=== PATIENT | female | born 1935 | race Two or more races ===

== ENCOUNTER 2020-07-24 13:50 | Emergency (ER) | payer MEDICAID ==
[~2020-07-24] VITALS: Ht 134.6 cm; Wt 35.0 kg
[~2020-07-24 13:50] MED LIST: ACET325T9 PO; AMLO-187 PO; ASPI-886 PO; CARV6.2511 PO; CLON1PAT6 TD; DOCU100C28 PO; FERR325T14 PO; FURO-69 PO; LISI10TA16 PO; PANT40TA77 PO; POLY17PO52 PO
[2020-07-24 15:03] LABS: BASO # 0.1 x10^3/uL (0.0-0.2); BASO % 1 % (0-3); EOS # 0.1 x10^3/uL (0.0-0.7); EOS % 2 % (0-3); HEMATOCRIT 33.3 % (36.0-47.0); HEMOGLOBIN 10.8 g/dL (12.0-15.5); LYMPH # 0.3 x10^3/uL (1.0-4.8); LYMPH % 7 % (24-48); MEAN CORPUSCULAR HEMOGLOBIN 27 pg (25-35); MEAN CORPUSCULAR HGB CONC 32 g/dL (31-37); MEAN CORPUSCULAR VOLUME 83 fL (79-100); MONO # 0.4 x10^3/uL (0.0-1.1); MONO % 8 % (0-9); NEUT # 3.8 x10^3/uL (1.8-7.7); NEUT % 82 % (31-73); PLATELET COUNT 325 x10^3/uL (140-400); RED BLOOD COUNT 3.99 x10^6/uL (3.50-5.40); RED CELL DISTRIBUTION WIDTH 17.8 % (11.5-14.5); WHITE BLOOD COUNT 4.6 x10^3/uL (4.0-11.0)
[2020-07-24] MEDS: MECLIZINE HCL 12.5 MG TABLET. PO ONE (15:11)
[2020-07-24] MEDS: IV NORMAL SALINE 500ML BAG 500 ML IV ONE (15:11)
[2020-07-24] MEDS: ONDANSETRON PF 4 MG/2 ML VIAL. IVP ONE (15:11)
[2020-07-24 15:16] LABS: CALCIUM 8.6 mg/dL (8.5-10.1); CREATININE 1.3 mg/dL (0.6-1.0); GFR 38.9; POTASSIUM 3.7 mmol/L (3.5-5.1)
--- NOTE | 2020-07-24 15:19 | ED.ADGEN ---
Past Medical History Past Medical History: Hypertension Past Surgical History: No Surgical History Additional Past Surgical Histo: Unknown Smoking Status: Never Smoker Alcohol Use: None Drug Use: None General Adult EDM: Chief Complaint: ABDOMINAL PAIN HPI: HPI: Patient is a 85 year old female brought in by EMS. Per translation by patient's son, patient is [place] speaking, she was sitting on the couch and had a sudden onset headache and vertigo. States the vertigo is worse with moving around and better with laying still. Has had similar symptoms in the past. Patient states he otherwise been well. Was recently hospitalized and diagnosed with a left ovarian mass, has not followed up with [facility]. Patient son states that her abdomen seems more distended. States she had tried to vomit but was not able to. Review of Systems: Review of Systems: All other systems within normal limits except for as noted in the HPI Current Medications: Current Medications Medications (Trade) Dose Ordered Sig/Martha Start Time Stop Time Status Last Admin Dose Admin Meclizine HCl (Antivert) 25 mg 1X ONCE 07/24/20 14:30 07/24/20 14:31 DC 07/24/20 15:11 25 MG Ondansetron HCl (Zofran) 4 mg 1X ONCE 07/24/20 14:15 07/24/20 14:16 DC 07/24/20 15:11 4 MG Sodium Chloride 500 ml @ 500 mls/hr 1X ONCE 07/24/20 14:15 07/24/20 15:14 DC 07/24/20 15:11 500 MLS/HR Allergies: Allergies: Allergies Coded Allergies Type Severity Reaction Last Updated Verified No Known Drug Allergies 11/08/18 No Physical Exam: PE: Constitutional: Well developed, well nourished, no acute distress, non-toxic appearance. [] HENT: Normocephalic, atraumatic, bilateral external ears normal, nose normal. [] Eyes: PERRLA, conjunctiva normal, no discharge. Extraocular is intact, nystagmus to the left [] Neck: No rigidity, supple, no stridor. [] Cardiovascular: Regular rate and rhythm, brisk cap refill [] Lungs & Thorax: Non labored symmetric respirations, no tachypnea or respiratory distress [] Abdomen: Soft, mildly distended and generalized tenderness. Skin: Warm, dry, no erythema, no rash. [] Back: Unremarkable Extremities: No deformities, range of motion grossly intact, no lower extremity edema [] Neurologic: Alert and oriented X 3, no focal deficits noted. [] Psychologic: Affect normal, judgement normal, mood normal. [] Current Patient Data: Labs: Laboratory Tests Test 07/24/20 14:50 07/24/20 15:15 White Blood Count 4.6 x10^3/uL (4.0-11.0) Red Blood Count 3.99 x10^6/uL (3.50-5.40) Hemoglobin 10.8 g/dL (12.0-15.5) L Hematocrit 33.3 % (36.0-47.0) L Mean Corpuscular Volume 83 fL (79-100) Mean Corpuscular Hemoglobin 27 pg (25-35) Mean Corpuscular Hemoglobin Concent 32 g/dL (31-37) Red Cell Distribution Width 17.8 % (11.5-14.5) H Platelet Count 325 x10^3/uL (140-400) Neutrophils (%) (Auto) 82 % (31-73) H Lymphocytes (%) (Auto) 7 % (24-48) L Monocytes (%) (Auto) 8 % (0-9) Eosinophils (%) (Auto) 2 % (0-3) Basophils (%) (Auto) 1 % (0-3) Neutrophils # (Auto) 3.8 x10^3/uL (1.8-7.7) Lymphocytes # (Auto) 0.3 x10^3/uL (1.0-4.8) L Monocytes # (Auto) 0.4 x10^3/uL (0.0-1.1) Eosinophils # (Auto) 0.1 x10^3/uL (0.0-0.7) Basophils # (Auto) 0.1 x10^3/uL (0.0-0.2) Segmented Neutrophils % 77 % (35-66) H Band Neutrophils % 3 % (0-9) Lymphocytes % 6 % (24-48) L Monocytes % 11 % (0-10) H Eosinophils % 1 % (0-5) Basophils % 2 % (0-3) Platelet Estimate Adequate (ADEQUATE) Hypochromasia Slight Anisocytosis Slight Sodium Level 131 mmol/L (136-145) L Potassium Level 3.7 mmol/L (3.5-5.1) Chloride Level 95 mmol/L (98-107) L Carbon Dioxide Level 30 mmol/L (21-32) Anion Gap 6 (6-14) Blood Urea Nitrogen 18 mg/dL (7-20) Creatinine 1.3 mg/dL (0.6-1.0) H Estimated GFR (Cockcroft-Gault) 38.9 BUN/Creatinine Ratio 14 (6-20) Glucose Level 117 mg/dL (70-99) H Lactic Acid Level 1.2 mmol/L (0.4-2.0) Calcium Level 8.6 mg/dL (8.5-10.1) Total Bilirubin 0.4 mg/dL (0.2-1.0) Aspartate Amino Transferase (AST) 28 U/L (15-37) Alanine Aminotransferase (ALT) 17 U/L (14-59) Alkaline Phosphatase 125 U/L (46-116) H Troponin I Quantitative < 0.017 ng/mL (0.000-0.055) Total Protein 7.3 g/dL (6.4-8.2) Albumin 3.1 g/dL (3.4-5.0) L Albumin/Globulin Ratio 0.7 (1.0-1.7) L Lipase 214 U/L (73-393) Urine Collection Type Unknown Urine Color Yellow Urine Clarity Clear Urine pH 6.5 (<5.0-8.0) Urine Specific [place] <=1.005 (1.000-1.030) Urine Protein 100 mg/dL (NEG-TRACE) Urine Glucose (UA) Negative mg/dL (NEG) Urine Ketones (Stick) Negative mg/dL (NEG) Urine Blood Small (NEG) Urine Nitrite Negative (NEG) Urine Bilirubin Negative (NEG) Urine Urobilinogen Dipstick 0.2 mg/dL (0.2 mg/dL) Urine Leukocyte Esterase Negative (NEG) Urine RBC 1-2 /HPF (0-2) Urine WBC Occ /HPF (0-4) Urine Squamous Epithelial Cells Few /LPF Urine Bacteria 0 /HPF (0-FEW) Urine Hyaline Casts Occasional /HPF Laboratory Tests 07/24/20 14:50 Laboratory Tests 07/24/20 14:50 Vital Signs: Vital Signs Date Time Temp Pulse Resp B/P (MAP) Pulse Ox O2 Delivery O2 Flow Rate FiO2 07/24/20 16:09 79 150/74 (99) 95 Room Air 07/24/20 13:50 98.2 18 98.2 EKG: EKG: Sinus rhythm, heart 70/min, normal axis, no ST elevation depression, no ectopy, T wave inversions in V5 and V6. [] Heart Score: C/O Chest Pain: No Risk Factors: Risk Factors: DM, Current or recent (<one month) smoker, HTN, HLP, family history of CAD, obesity. Risk Scores: Score 0 - 3: 2.5% MACE over next 6 weeks - Discharge Home Score 4 - 6: 20.3% MACE over next 6 weeks - Admit for Clinical Observation Score 7 - 10: 72.7% MACE over next 6 weeks - Early Invasive Strategies Radiology/Procedures: Radiology/Procedures: CT Head W/O Contrast: History: Reason: headache and vertigo / Spl. Instructions: / History: Comparison: none Axial images were obtained without contrast. There is marked diffuse atrophy. There is no mass effect, extraaxial fluid collections or hydrocephalus. 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 There is no focal loss of de la rosa- white matter distinction to suggest acute ischemia, i.e. stroke. 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 No acute findings. End impression [] Course & Med Decision Making: Course & Med Decision Making Pertinent Labs and Imaging studies reviewed. (See chart for details) Work remarkable, symptoms resolved with meclizine. History and exam consistent with peripheral vertigo [] Dragon Disclaimer: Dragon Disclaimer: This electronic medical record was generated, in whole or in part, using a voice recognition dictation system. Departure Departure Impression: Primary Impression: Vertigo Disposition: 01 DC HOME SELF CARE/HOMELESS Condition: STABLE Referrals: UNKNOWN PCP NAME (PCP) [facility] Patient Instructions: Vertigo Additional Instructions: Follow-up with [facility] for recommendations on left ovarian mass. Scripts Meclizine Hcl (MECLIZINE HCL) 25 Mg Tablet 1 TAB PO TID for dizziness, #20 TAB Prov: JENS SANTILLAN MD 07/24/20 JENS SANTILLAN MD Jul 24, 2020 15:18
[2020-07-24 15:21] LABS: ALBUMIN 3.1 g/dL (3.4-5.0); ALBUMIN/GLOBULIN RATIO 0.7 (1.0-1.7); TOTAL BILIRUBIN 0.4 mg/dL (0.2-1.0); TOTAL PROTEIN 7.3 g/dL (6.4-8.2)
[2020-07-24 15:22] LABS: BILIRUBIN,URINE NEGATIVE (NEG); CLARITY,URINE CLEAR; COLOR,URINE YELLOW; NITRITE,URINE NEGATIVE (NEG); PH,URINE 6.5 (<5.0-8.0); PROTEIN,URINE 100 mg/dL (NEG-TRACE); UROBILINOGEN,URINE 0.2 mg/dL (0.2 mg/dL)
--- NOTE | 2020-07-24 15:22 | RAD ---
CT Head W/O Contrast: History: Reason: headache and vertigo / Spl. Instructions: / History: Comparison: none Axial images were obtained without contrast. There is marked diffuse atrophy. There is no mass effect, extraaxial fluid collections or hydrocepha jose. 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 There is no focal loss of de la rosa-white matter distincti on to suggest acute ischemia, i.e. stroke. 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 No acute findings. End impression PQRS Compliance Statement: One or more of the following individualized dose reduction techniques were utilized for this examinat ion: 1. Automated exposure control 2. Adjustment of the mA and/or kV according to patient size 3. Use of iterative reconstruction technique Electronically signed by: Sanjay Smallwood III, MD (07/24/2020 3:20 PM) [facility]
[2020-07-24 15:34] LABS: HYALINE CASTS, URINE OCCASIONAL /HPF
[2020-07-24 15:36] LABS: BACTERIA,URINE 0 /HPF (0-FEW); WBC,URINE OCC /HPF (0-4)
[2020-07-24 16:03] LABS: % BANDS 3 % (0-9); % BASOS 2 % (0-3); % EOS 1 % (0-5); % LYMPHS 6 % (24-48); % MONOS 11 % (0-10); % SEGS 77 % (35-66); PLT ESTIMATE ADEQUATE (ADEQUATE)
[2020-07-24 16:04] LABS: ANISOCYTOSIS SLIGHT
[2020-07-24 16:08] LABS: HYPOCHROMIA SLIGHT
[2020-07-24 17:09] VITALS: BP 135/67
[2020-07-24] MEDS ORDERED: MECL-75 PO (17:44)
--- NOTE | 2020-07-24 18:22 | EKG ---
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
== END 2020-07-24 18:30 | disposition home or self-care (01) ==
LOC: ER 13:50
DX: R42 Dizziness and giddiness (principal); R51.9 Headache, unspecified; I10 Essential (primary) hypertension
CPT/HCPCS: 36415; 70450; 80053; 81001; 83605; 83690; 84484; 85007; 85025; 93005; 96361; 96374; 99285; J2405; J7040; J8597

== ENCOUNTER 2021-02-04 12:48 | Emergency (ER) | payer MEDICAID ==
[~2021-02-04] VITALS: Ht 124.5 cm; Wt 27.7 kg
[~2021-02-04 12:48] MED LIST changes: +MECL-75 PO
[2021-02-04 13:59] LABS: BASO % 1 % (0-3); EOS # 0.1 x10^3/uL (0.0-0.7); EOS % 3 % (0-3); HEMATOCRIT 33.5 % (36.0-47.0); HEMOGLOBIN 11.1 g/dL (12.0-15.5); LYMPH # 0.6 x10^3/uL (1.0-4.8); LYMPH % 17 % (24-48); MEAN CORPUSCULAR HEMOGLOBIN 30 pg (25-35); MEAN CORPUSCULAR HGB CONC 33 g/dL (31-37); MEAN CORPUSCULAR VOLUME 90 fL (79-100); MONO # 0.4 x10^3/uL (0.0-1.1); MONO % 13 % (0-9); NEUT # 2.3 x10^3/uL (1.8-7.7); NEUT % 66 % (31-73); PLATELET COUNT 266 x10^3/uL (140-400); RED BLOOD COUNT 3.74 x10^6/uL (3.50-5.40); RED CELL DISTRIBUTION WIDTH 13.8 % (11.5-14.5); WHITE BLOOD COUNT 3.5 x10^3/uL (4.0-11.0)
--- NOTE | 2021-02-04 14:05 | PHYS DOC ---
Past Medical History Past Medical History: Hypertension Past Surgical History: No Surgical History Additional Past Surgical Histo: Unknown Smoking Status: Never Smoker Alcohol Use: None Drug Use: None General Adult EDM: Chief Complaint: NOSEBLEED HPI: HPI: Patient is a 85 year old female who presents with brought in by family for a bloody nose that lasted for about 15 minutes. Bleeding was very limited and I showed the nursing staff. There is no blood in the back of the throat or dried blood inside the nose. Denies headache, nausea, vomiting, diarrhea, fever, cough, syncope, dizziness, abdominal pain, chest pain, shortness of breath. Family states the patient is not on blood thinner. She is confused and at her normal baseline per the family. Patient only history is hypertension per the family. Review of Systems: Review of Systems: Constitutional: Denies fever or chills. [] Eyes: Denies change in visual acuity. [] HENT: Denies nasal congestion or sore throat. + Nosebleed [] Respiratory: Denies cough or shortness of breath. [] Cardiovascular: Denies chest pain or edema. [] GI: Denies abdominal pain, nausea, vomiting, bloody stools or diarrhea. [] : Denies dysuria. [] Musculoskeletal: Denies back pain or joint pain. [] Integument: Denies rash. [] Neurologic: Denies headache, focal weakness or sensory changes. [] Endocrine: Denies polyuria or polydipsia. [] Lymphatic: Denies swollen glands. [] Psychiatric: Denies depression or anxiety. [] Heart Score: C/O Chest Pain: No Allergies: Allergies: Allergies Coded Allergies Type Severity Reaction Last Updated Verified No Known Drug Allergies 11/08/18 No Physical Exam: PE: Constitutional: Well developed, well nourished, no acute distress, non-toxic appearance. [] HENT: Normocephalic, atraumatic, bilateral external ears normal, oropharynx moist, no oral exudates, nose normal. [] Eyes: PERRLA, EOMI, conjunctiva normal, no discharge. [] Neck: Normal range of motion, no tenderness, supple, no stridor. [] Cardiovascular:Heart rate regular rhythm, no murmur [] Lungs & Thorax: Bilateral breath sounds clear to auscultation [] Abdomen: Bowel sounds normal, soft, no tenderness, no masses, no pulsatile masses. [] Skin: Warm, dry, no erythema, no rash. [] Back: No tenderness, no CVA tenderness. [] Extremities: No tenderness, no cyanosis, no clubbing, ROM intact, no edema. [] Neurologic: Alert and oriented X 3, normal motor function, normal sensory function, no focal deficits noted. [] Psychologic: Affect normal, judgement normal, mood normal. [] Normal physical exam Current Patient Data: Vital Signs: Vital Signs Date Time Temp Pulse Resp B/P (MAP) Pulse Ox O2 Delivery O2 Flow Rate FiO2 02/04/21 13:26 97.6 88 18 170/85 (113) 97 Room Air 97.6 EKG: EKG: [] Radiology/Procedures: Radiology/Procedures: [] Course & Med Decision Making: Course & Med Decision Making Pertinent Labs and Imaging studies reviewed. (See chart for details) See HPI. Alert and oriented x2. Patient is calm and cooperative. She is ple asantly confused. At baseline per the family. There is no dried blood or bleeding from the nose, no deformity to the nose, swelling, signs of fall and family denies all this. There is no blood to the back of the throat. No tenderness to the face with palpation. No swelling or trauma to the face or head. Denies any type of pain. Abdomen is soft and nontender. Patient does heredia ve 2+ edema to her bilateral legs but has been that way for 2 years for the family. She is slightly hypertensive but has not taken her blood pressure medication today. Patient has not started to have a nosebleed again with her stay in the ED today. She remained stable and in no distress. Patient's kidney function is elevated but when looking back she has some kidney insufficiency problems. Patient likely needs to drink more fluids. Family is instructed that the patient needs to follow-up with her primary care provider and have her blood redrawn in the next week. I did review this patient findings and care plan with Dr. Zheng. [] Donell Disclaimer: Donell Disclaimer: This electronic medical record was generated, in whole or in part, using a voice recognition dictation system. Departure Departure Impression: Primary Impression: Bleeding nose Disposition: HOME / SELF CARE / HOMELESS Condition: STABLE Referrals: UNKNOWN PCP NAME (PCP) Patient Instructions: Nosebleed Additional Instructions: Follow-up with primary care provider this coming week. Drink plenty of fluids. Use nasal spray as prescribed. Take all medications as they are prescribed. Scripts Oxymetazoline Hcl (AFRIN) 30 Ml [place] 30 ML NS DAILY for 5 Days, #1 SPRAY Prov: LÓPEZ MANN APRN 02/04/21 LÓPEZ MANN APRN Feb 04, 2021 14:05
[2021-02-04 14:07] LABS: CALCIUM 8.3 mg/dL (8.5-10.1); CREATININE 1.7 mg/dL (0.6-1.0); GFR 28.6; POTASSIUM 3.9 mmol/L (3.5-5.1)
[2021-02-04 14:08] LABS: PROTHROMBIN TIME PATIENT 11.1 SEC (11.7-14.0)
[2021-02-04 14:13] LABS: ALBUMIN 2.8 g/dL (3.4-5.0); ALBUMIN/GLOBULIN RATIO 0.6 (1.0-1.7); TOTAL BILIRUBIN 0.4 mg/dL (0.2-1.0); TOTAL PROTEIN 7.6 g/dL (6.4-8.2)
[2021-02-04] MEDS ORDERED: OXYM30SP25 NS (14:34)
[2021-02-04 15:01] VITALS: BP 141/75
== END 2021-02-04 15:02 | disposition home or self-care (01) ==
LOC: ER 12:48
DX: R04.0 Epistaxis (principal); R41.0 Disorientation, unspecified; I10 Essential (primary) hypertension
CPT/HCPCS: 36415; 80053; 85025; 85610; 99284